=== PATIENT | female | born 1940 | race Caucasian/White ===

== ENCOUNTER 2017-10-22 20:35 | Emergency (ER) | payer MEDICARE ==
--- NOTE | 2017-10-22 21:26 | ED Physician Chart ---
ED Chief Complaint/HPI - Patient Information Date Seen:: 10/22/17 Time Seen:: 21:15 Chief Complaint:: redness and swelling both lower legs History of Present Illness:: Patient's had redness and swelling of both lower legs for 3 months. She has also been treated for the last 2 days for a urinary tract infection. Historian:: Patient, EMS Review:: Nurse's Note Reviewed, Old Chart Reviewed ED Review of Systems - Review of Systems General/Constitutional: No fever, No chills Skin: Skin lesions Head: No headache Eyes: No loss of vision ENT: No earache Neck: No neck pain Cardio Vascular: No chest pain, No palpitations Pulmonary: No SOB GI: No nausea, No vomiting, No diarrhea G/U: No dysuria Musculoskeletal: No bone or joint pain Endocrine: No polyuria, No polydipsia Psychiatric: No prior psych history Hematopoietic: No bruising Allergic/Immuno: No urticaria Neurological: No syncope, No focal symptoms ED Past Medical History - Past Medical History Past Medical History: Other (anxiety; hypertension; cellulitis; renal failure; hyperlipidemia; osteoporosis; osteoarthritis) Family History: Heart disease Social History: Non Smoker, No Alcohol, Care Facility Surgical History: Hysterectomy Psychiatricy History: Other (anxiety) Medication: Reviewed Family Medical History - Family Member Mother History Unknown: Yes ED Physical Exam - Physical Examination General/Constitutional: Well-developed, well-nourished, Alert, No distress Head: Atraumatic Eyes: Lids, conjuctiva normal, PERRL Other Skin comments:: Redness and swelling both lower legs, ankles and feet ENMT: External ears, nose nl, Oropharynx nl Neck: No nuchal rigidity Respiratory: Nl effort/Exclusion, Clear to Auscultation Cardio Vascular: RRR GI: No tenderness/rebounding/guarding, No organomegaly, No hernia : No CVA tenderness Other Extremities comments:: See above under skin ED Labs/Radiology/EKG Results - Lab Results Results: Laboratory Results - last 24 hr 10/23/17 10/23/17 00:50 00:50 WBC 5.9 RBC 3.97 Hgb 11.6 L Hct 34.6 L MCV 87.3 MCH 29.3 MCHC Differential 33.6 RDW 14.5 Plt Count 112 L MPV 7.6 Neutrophils % 66.4 Lymphocytes % 19.7 L Monocytes % 11.8 H Eosinophils % 2.0 Basophils % 0.1 Sodium 137 Potassium 4.0 Chloride 106 Carbon Dioxide 25.9 Anion Gap 9.1 BUN 21 Creatinine 1.4 H Est GFR ( Amer) TNP Est GFR (Non-Af Amer) TNP BUN/Creatinine Ratio 15.0 Glucose 153 H Calcium 9.2 ED Assessment - Assessment General Assessment: Patient's lower legs ankles and feet are quite erythematous. However stasis dermatitis is more likely been cellulitis as cellulitis is usually unilateral and painful. Patient states her legs are always read like they are now. Patient wishes to return to her facility. She does not have a urinary tract infection. ED Septic Shock - . Is Septic Shock (SBP<90, OR Lactate>4 mmol\L) present?: No ED Reassessment (Disposition) - Reassessment Reassessment Condition:: Unchanged - Diagnosis Diagnosis:: Stasis dermatitis - Aftercare/Follow up Instructions Aftercare/Follow-Up Instructions:: Refer to Discharge Instructions - Patient Disposition Discharge/Transfer:: [facility] - SNF Condition at Disposition:: Stable, Unchanged
[2017-10-23 01:02] LABS: % BASOPHILS 0.1 % (0.0-2.0); % LYMPHOCYTES 19.7 % (20.0-50.0); % MONOCYTES 11.8 % (2.0-10.0); % NEUTROPHILS 66.4 % (40.0-80.0); EOSINOPHILE ABSOLUTE 0.1 Th/cmm (0.1-0.4); HEMATOCRIT 34.6 % (41.0-60); HEMOGLOBIN 11.6 gm/dL (12-16); LYMPHOCYTE ABSOLUTE 1.2 Th/cmm (1.5-3.0); MEAN CELL VOLUME 87.3 fl (81-100); MEAN CORPUSCULAR HEMOGLOBIN 29.3 pg (27.0-31.0); MEAN CORPUSCULAR HGB CONC 33.6 pg (28.0-36.0); MEAN PLATELET VOLUME 7.6 fl; MONOCYTE ABSOLUTE 0.7 Th/cmm (0.3-1.0); NEUTROPHILE ABSOLUTE 3.9 Th/cmm (1.8-8.0); PLATELET COUNT 112 Th/cmm (150-400); RED BLOOD COUNT 3.97 Mil/cmm (3.80-5.20); RED CELL DISTRIBUTION WIDTH 14.5 % (11.5-20.0); WHITE BLOOD COUNT 5.9 Th/cmm (4.8-10.8)
[2017-10-23 01:15] LABS: ANION GAP 9.1 (7.0-16.0); BUN - UREA NITROGEN 21 mg/dL (7-25); CALCIUM SERUM 9.2 mg/dL (8.6-10.3); CARBON DIOXIDE 25.9 mEq/L (21.0-31.0); CHLORIDE 106 mEq/L (98-107); CREATININE - SERUM 1.4 mg/dL (0.6-1.2); GLUCOSE 153 mg/dL (70-105); SODIUM SERUM 137 mEq/L (136-145)
[2017-10-23 02:12] LABS: URINE MICROSCOPIC INDICATED? YES; URINE SOURCE RANDOM
[2017-10-23 02:14] LABS: URINE BILIRUBIN NEGATIVE (NEGATIVE); URINE BLOOD SMALL (NEGATIVE); URINE GLUCOSE (UA) NEGATIVE (NEGATIVE); URINE KETONE NEGATIVE (NEGATIVE); URINE LEUKOCYTE ESTERASE TRACE (NEGATIVE); URINE NITRATE NEGATIVE (NEGATIVE); URINE PROTEIN NEGATIVE (NEGATIVE); URINE UROBILINOGEN 0.2 E.U./dL (0.2 - 1.0)
[2017-10-23 02:19] LABS: URINE BACTERIA FEW /hpf (NONE SEEN); URINE CLARITY CLEAR (CLEAR); URINE COLOR YELLOW; URINE EPITHELIAL CELLS FEW /lpf (FEW); URINE RBC 0-2 /hpf (0-5)
== END 2017-10-23 03:50 ==
LOC: EDSEX 20:35 → ER 20:35
DX: I87.2 Venous insufficiency (chronic) (peripheral) (principal)
CPT/HCPCS: 36415-UA; 80048-TC; 81001-TC; 85025-TC; Z7502